=== PATIENT | female | born 1940 | race African-American/Black ===

== ENCOUNTER 2016-06-16 11:16 | Emergency (ER) | payer MEDICARE, MEDICAID ==
[~2016-06-16] VITALS: Ht 157.5 cm; Wt 97.0 kg
[~2016-06-16 11:16] MED LIST: ASPI-1035 PO; DOCU-138 PO; FOLI-43 PO; FURO-151 PO; GLIM2TAB2 PO; LOSA50TA20 PO; PERP1TAB8 PO
[2016-06-16] MEDS ORDERED: ONDANSETRON HCL 4MG/2ML VIAL IV STA (12:16)
[2016-06-16] MEDS ORDERED: MORPHINE SULFATE 4 MG/ML CPJ (NOT FOR IM USE) IV STA (12:16)
[2016-06-16] MEDS ORDERED: SODIUM CHLORIDE 0.9% 1,000 ML IV ONE (12:16)
[2016-06-16 12:49] LABS: BASOPHILS % 0.9 % (0.0-2.0); DIFFERENTIAL COMMENT 0; EOSINOPHILS % 2.5 % (0.0-5.0); HEMOGLOBIN. 11.6 g/dL (12.0-16.0); LYMPHOCYTES % 35.6 % (20.0-50.0); MEAN CORPUSCULAR HEMOGLOBIN 33.8 pg (28.0-32.0); MEAN CORPUSCULAR VOLUME 102.2 fL (81.0-99.0); MEAN PLATELET VOLUME 8.6 fl (7.4-10.4); MONOCYTES % 11.8 % (2.0-8.0); NEUTROPHILS % 49.2 % (40.0-76.0); PLATELET 210 x1000/uL (130-400); RED BLOOD CELL COUNT 3.42 mill/uL (4.2-5.4); RED CELL DISTRIBUTION WIDTH 13.7 % (11.6-14.6); WHITE BLOOD COUNT 4.9 x1000/uL (4.5-11.0)
[2016-06-16 12:55] LABS: CHLORIDE 104 mEq/L (98-107); INDEX HEMOLYSI 1 (1-3); INDEX ICTERIC 1 (1-4); INDEX LIPEMIC 1 (1-3)
[2016-06-16 12:57] LABS: PROTHROMBIN TIME 10.2 sec
[2016-06-16 12:59] LABS: ALBUMIN 3.5 g/dL (3.4-5.0); ANION GAP 10; CALCIUM 8.7 mg/dL (8.5-10.1); CARBON DIOXIDE 27 mEq/L (21-32); UREA NITROGEN BLOOD 16 mg/dL (7-21)
[2016-06-16 13:10] LABS: ALANINE AMINOTRANSFERASE 20 IU/L (13-61); eGFR > 60 mL/min (>60)
[2016-06-16 14:48] VITALS: BP 152/74
== END 2016-06-16 14:50 | disposition home or self-care (01) ==
LOC: ER 13:20
DX: L03.115 Cellulitis of right lower limb (principal); E16.2 Hypoglycemia, unspecified; E11.9 Type 2 diabetes mellitus without complications; I10 Essential (primary) hypertension; M79.605 Pain in left leg; Z88.5 Allergy status to narcotic agent; Z88.8 Allergy status to other drugs, medicaments and biological substances; Z79.899 Other long term (current) drug therapy; Z79.82 Long term (current) use of aspirin; Z90.49 Acquired absence of other specified parts of digestive tract
CPT/HCPCS: 36415; 73590; 80053; 83605; 85025; 85610; 85651; 86140; 87040; 93005; 93970; 99285; J7030